=== PATIENT | female | born 1960 | race Caucasian/White ===

== ENCOUNTER → 2017-01-07 | Outpatient (CLI) | payer OTHER | END | disposition home or self-care (01) | LOC: PTH.S 01-06 15:00 | DX: R19.7 Diarrhea, unspecified (principal) ==

== ENCOUNTER 2017-01-20 12:53 | Emergency (ER) | payer OTHER ==
--- NOTE | 2017-02-01 07:48 | ER ---
ADMIT: 01/20/2017 RM/LOC: ER [facility] MR#: [id number] [id number] VANDANA LAWRENCE [address] [place] [id number] Emergency Room Report SEX: F AGE: 56 : 1960 DATE: 01/20/2017 Primary care physician is Dr. Gallego. CHIEF COMPLAINT: Vomiting and abdominal pain. HISTORY OF PRESENT ILLNESS: This is a pleasant 56-year-old female, who presents to the ER complaining of vomiting and abdominal pain for the past 2 days. The patient states she has been battling some nausea, vomiting, and diarrhea for the past 2 days. She has been using nausea pills at home without improvement. She states she has been trying Sprite and small amounts of food but is unable to keep these down. She states she phoned her primary care doctor, Dr. Gallego, who stated she needed to come to the ER for further evaluation and IV fluids. The patient states she has mild abdominal pain, generalized in nature with some pains in her right upper quadrant. The patient did recently have a cholecystectomy in November 2016. The patient states the vomiting has occurred 4 times a day. She describes it as bilious in nature. She has mild diarrhea. Overall, she feels very run down, complaining of weakness and dizziness. PAST MEDICAL HISTORY: Significant for hypertension and bipolar disorder. PAST SURGICAL HISTORY: Include cholecystectomy, hysterectomy, colonoscopy. She states she had a colonoscopy recently which they biopsied a large polyp and she is scheduled to have a repeat colonoscopy later this year. COURSE IN THE ER: The patient was seen and examined, unable to produce any specific pain. She has some tenderness in the right upper quadrant over her surgical site. Incisions appear well healed without any purulent drainage. Vital signs are stable. She does somewhat of a flat affect and states she has been unable to take her medicine for the past 2 days secondary to the vomiting. She is anxious. She is in no acute distress. She is given 1 L of normal saline as well as 4 mg of Zofran IV. The patient states this does make her feel mildly better but she still complains of some nausea and upset stomach. IMPRESSION: Acute viral gastroenteritis. ADMIT: 01/20/2017 RM/LOC: ER [facility] MR#: [id number] [id number] VANDANA LAWRENCE [address] [place] [address] Emergency Room Report SEX: F AGE: 56 : 1960 DISPOSITION: Did discuss the diagnosis with the patient, likely viral gastroenteritis. Discussed the treatment for this to include pushing frequent small amounts of fluid and controlling her nausea. We did give her prescription for Zofran 4 mg ODT q.8 hours as needed for nausea. She was told to follow up with Dr. Gallego. If she fails to improve over the next several days, she was encouraged to follow the BRAT diet and advance her diet as tolerated. She was instructed to continue her home medications as prescribed and was of course encouraged to return to the ER with any worsening symptoms to include high fever, increased pain, inability to stay hydrated. Her questions were sought and answered to the best of my ability and to the patient's satisfaction. She agreed to the plan moving forward, and was discharged from the ER in stable condition. JULIO Egan / Macho Fisher MD / syed JOB #: [id number] CC: Macho Fisher MD, Attending Physician Omi Stephens MD, Family Physician
== END 2017-01-20 14:40 | disposition home or self-care (01) ==
LOC: ER 12:53
DX: A08.4 Viral intestinal infection, unspecified (principal); Z90.49 Acquired absence of other specified parts of digestive tract; Z90.710 Acquired absence of both cervix and uterus

== ENCOUNTER → 2017-01-28 | Outpatient (CLI) | payer OTHER | END | disposition home or self-care (01) | LOC: RAD.S 08:00 | DX: R11.2 Nausea with vomiting, unspecified (principal); K30 Functional dyspepsia; R63.4 Abnormal weight loss ==

== ENCOUNTER → 2017-04-12 | Outpatient (CLI) | payer OTHER | END | disposition home or self-care (01) | LOC: RAD.S 09:04 | DX: Z12.31 Encounter for screening mammogram for malignant neoplasm of breast (principal); R92.8 Other abnormal and inconclusive findings on diagnostic imaging of breast; Z80.3 Family history of malignant neoplasm of breast ==